=== PATIENT | male | born 1985 | race Caucasian/White ===

== ENCOUNTER 2018-01-31 10:04 | Emergency (ER) | payer MEDICAID ==
[~2018-01-31] VITALS: Ht 170.2 cm; Wt 63.5 kg
[2018-01-31 10:10] VITALS: BP_SYST 138
[2018-01-31] MEDS ORDERED: IBUPROFEN 800 MG TABLET PO ONE (12:30)
[2018-01-31 12:36] VITALS: BP_SYST 115
== END 2018-01-31 12:36 | disposition home or self-care (01) ==
LOC: SED 10:04
DX: S16.1XXA Strain of muscle, fascia and tendon at neck level, initial encounter (principal); V89.2XXA Person injured in unspecified motor-vehicle accident, traffic, initial encounter; Y93.89 Activity, other specified; Y92.89 Other specified places as the place of occurrence of the external cause; Y99.8 Other external cause status
CPT/HCPCS: 72125-TC; 99284